=== PATIENT | female | born 1930 ===

== ENCOUNTER 2017-05-02 10:09 | Emergency (ER) | payer SELFPAY ==
[~2017-05-02] VITALS: Ht 162.6 cm; Wt 65.0 kg
[2017-05-02 10:30] VITALS: Ht 162.6 cm; Wt 65.0 kg
--- NOTE | 2017-05-02 12:16 | ERD ---
ER Documentation Chief Complaint Chief Complaint PT BIB RA for GLF with LAC to back of head, on coumadin, no KO. HPI This is an 86-year-old female who presents to the emergency room for evaluation of a ground-level fall. This patient states she was bending forward and lost her balance and fell backwards. She had no loss of consciousness, she does state she is taking Coumadin for atrial fibrillation. She denies any head injury but is here with family members to agree that this patient is at her baseline state that she has suffered from a previous ischemic stroke. ROS All systems reviewed and are negative except as per history of present illness. Medications Home Meds No Active Prescriptions or Reported Meds Allergies Allergies: Coded Allergies: No Known Allergy (Unverified , 05/02/17) PMhx/Soc History of Surgery: No Anesthesia Reaction: No Hx Neurological Disorder: Yes (Stroke) Hx Respiratory Disorders: No Hx Cardiac Disorders: No Hx Psychiatric Problems: Yes (anxiety) Hx Miscellaneous Medical Probl: Yes (HTN, cholesterol, DM reflux) Hx Alcohol Use: No Hx Substance Use: No Hx Tobacco Use: No Smoking Status: Never smoker Physical Exam Vitals Vital Signs Date Time Temp Pulse Resp B/P Pulse Ox O2 Delivery O2 Flow Rate FiO2 05/02/17 10:30 97.6 52 18 154/61 98 Physical Exam INITIAL VITAL SIGNS: Reviewed by me GENERAL: The patient is well developed and appropriate for usual state of health in no apparent distress HEENT: Small 0.5 cm superficial abrasion on the occipital portion of the scalp, pupils equal, round, and reactive to light. EOMI. There is no scleral icterus. NECK: C-spine is soft and supple, there is no meningismus. There is no cervical lymphadenopathy. LUNGS: Clear to auscultation bilaterally. There are no rales, wheezes or rhonchi. HEART: Regular rate and rhythm, no murmurs, clicks, rubs or gallops. ABDOMEN: Soft, non-tender, non-distended. There are bowel sounds in all four quadrants. No rebound or guarding. EXTREMITIES: There is no peripheral cyanosis or edema. No focal swelling or erythema. NEUROLOGICAL: The patient moves all four extremities with 5/5 strength. Cranial nerves II - XII are intact. Normal gait. Alert and oriented to place and time SKIN: There is no apparent rash or petechiae. HEME/LYMPHATIC: There is no evidence of excessive bruising or lymphedema. PSYCHIATRIC: The patient does not appear anxious or depressed. Procedures/MDM CT brain without: No acute intracranial pathology per radiology This 86-year-old female presents to the emergency room after ground-level fall. This patient is on Coumadin. When I evaluated her she was alert oriented to person place and time with no focal neurological deficits. The patient does have a history of dementia and according to family members were at bedside they state that she is at her normal baseline mental status. A CT of the head was obtained which does not show any sign of any acute bleed. I have spoken to the patient and the patient's family in regards to her diagnosis and everyone feels comfortable with her plan of discharge at this time. I advised them they can return to the ER any point for reevaluation if she were to become altered. Departure Diagnosis: Primary Impression: Fall with no significant injury Additional Impression: Scalp abrasion Condition: Stable JUNG NAGEL DO May 02, 2017 12:16
[2017-05-02 12:39] VITALS: BP 142/68; PULSE 78; RESP 16; TEMP 97.9
--- NOTE | 2017-05-02 15:19 | RADRPT ---
PROCEDURE: CT Brain without contrast. CLINICAL INDICATION: Altered mental status. TECHNIQUE: A CT of the brain without contrast was performed utilizing axial sections from the skul l base through the vertex. The patient was scanned without intravenous contrast enhancement. Sagitta l and coronal reformatted images were obtained using the data from the axial images. Total exam DLP is 720.23 mGy-cm. CTDIvol is 44.84 mGy. One or more of the following dose reduction techniques we re used: Automated exposure control, adjustment of the mA and/or kV according to patient size, use o f iterative reconstruction technique. COMPARISON: None available FINDINGS: There is a large region of encephalomalacia in the left temporal parietal lobe consistent with an ol d infarct. The shearer and white matter differentiation is otherwise normal. There is no evidence of re cent infarct. There is enlargement of the ventricles and subarachnoid spaces consistent with atrophy. There is decreased attenuation of the periventricular white matter consistent with microangiopathic ischemic change. There is no intracranial hemorrhage or space-occupying lesion. There are vascular calcifications consistent with atherosclerosis. There is no skull fracture or lytic lesion. IMPRESSION: 1. Atrophy. 2. Microangiopathic ischemic change. 3. Atherosclerosis. 4. Large old infarct in the left temporal parietal lobe with encephalomalacia at this site. 5. No intracranial hemorrhage. 6. Otherwise unremarkable noncontrast CT scan of the brain. RPTAT: QQ .Felix Estes MD, MD Date Time Electronically viewed and signed by .Felix Estes MD, on 05/02/2017 15:19 .R/
== END 2017-05-02 12:39 | disposition home or self-care (01) ==
LOC: E/R 10:09
DX: S00.01XA Abrasion of scalp, initial encounter (principal); I10 Essential (primary) hypertension; E11.9 Type 2 diabetes mellitus without complications; R51 Headache; W18.39XA Other fall on same level, initial encounter; Y92.9 Unspecified place or not applicable; Z79.01 Long term (current) use of anticoagulants
CPT/HCPCS: 70450; 93005